=== PATIENT | female | born 1955 ===

== ENCOUNTER 2025-03-18 09:13 | Outpatient (CLI) | payer OTHER | END 2025-03-18 09:16 | disposition home or self-care (01) | LOC: SONOGRAMA 09:13 | PROVIDERS: ATTEND Pathology Anatomic Pathology & Clinical Pathology | DX: C73 Malignant neoplasm of thyroid gland (principal); D34 Benign neoplasm of thyroid gland; E07.89 Other specified disorders of thyroid; E03.9 Hypothyroidism, unspecified ==